=== PATIENT | female | born 1930 | race Caucasian/White ===

== ENCOUNTER 2017-03-20 08:51 | Outpatient (CLI) | payer MEDICARE, OTHER ==
--- NOTE | 2017-03-20 11:04 | Ultrasound Report ---
AORTA SCREEN: 03/20/2017 CLINICAL INDICATION: Screening. TECHNIQUE: Real-time scanning was performed with in home sales representative static images obtained. FINDINGS: The abdominal aorta is normal in caliber, measuring 1.5 cm proximally , 1.7 cm in the mid portion, and 1.2 cm distally. The iliacs are normal in caliber. No free fluid is present. IMPRESSION: NO EVIDENCE OF ABDOMINAL AORTIC ANEURYSM. JOB #: [id number] EXT JOB #: [id number] [facility]
--- NOTE | 2017-03-20 11:42 | XRAY Report ---
THREE-VIEW BILATERAL KNEES: 03/20/2017 CLINICAL INDICATION: Bilateral pain. TECHNIQUE: AP, lateral, sunrise views of the bilateral knees were obtained. COMPARISON: 08/27/2015 FINDINGS: Moderate osteoarthritis is again seen, with chondrocalcinosis. There is no evidence of ac jakob fracture. No effusion is present. IMPRESSION: MODERATE BILATERAL OSTEOARTHRITIS. NO SIGNIFICANT INTERVAL CHANGE. JOB #: [id number] EXT JOB #:[id number]
--- NOTE | 2017-03-20 16:26 | DEXA Report ---
DEXA SCAN: 03/20/2017 CLINICAL INDICATION: Postmenopausal. TECHNIQUE: Dual energy x-ray absorptiometry (DXA) was performed on a [employer] system. Regions measured are the AP spine, femoral neck, and, if needed, forearm. COMPARISON: None. In accordance with the International Society for Clinical Densitometry (ISCD) guidelines, data from previous exams may be reanalyzed using current recommendations and techniques. This is done to allow a more accurate basis for comparison with the current study. FINDINGS The data for the lumbar spine is as follows: REGION BMD (g/cm/cm) T-SCORE Z-SCORE L1 1.494 3.0 5.0 L2 1.433 1.9 4.0 L3 1.437 2.0 4.0 L4 1.387 1.6 3.6 TOTAL 1.435 2.1 4.1 NOTE: All evaluable vertebrae are used for classification. The data for the hip is as follows: REGION BMD (g/cm/cm) T-SCORE Z-SCORE Neck 1.006 -0.2 2.2 TOTAL 1.040 0.3 2.6 NOTE: The femoral neck or total proximal femur, whichever is lowest, is used for classification. IMPRESSION: THE WHO CLASSIFICATION BASED ON THE INTERNATIONAL REFERENCE STANDARD IS NORMAL. THE FRACTURE RISK IS NOT INCREASED. RECOMMENDATION: Patients with diagnosis of osteoporosis or osteopenia should have regular bone mineral density assessment. For those eligible for Medicare, routine testing is allowed once every 2 years. Testing frequency can be increased for patients who have rapidly progressing disease or for those who are receiving medical therapy to restore bone mass. COMMENT: World Health Organization (WHO) definitions for osteoporosis and osteopenia: NORMAL BMD: T-score at -1.0 or higher, fracture risk is low. OSTEOPENIA BMD: T-score between -1.0 and -2.5, fracture risk is increased. OSTEOPOROSIS BMD: T-score at -2.5 or lower, fracture risk high. National Osteoporosis Foundation recommends: 1. Obtain adequate dietary calcium (at least 1200 mg per day) and vitamin D (400 -800 international units per day). 2. Participate, as appropriate, in regular weightbearing and muscle- strengthening exercise. 3. Avoid tobacco use and reduce alcohol and caffeine intake. 4. For more detailed information see the website at www.NOF.org. MTDD
== END 2017-03-20 08:52 | disposition home or self-care (01) ==
LOC: DI 08:51
PROVIDERS: ATTEND Family Medicine
DX: Z13.6 Encounter for screening for cardiovascular disorders (principal); Z13.820 Encounter for screening for osteoporosis; M17.0 Bilateral primary osteoarthritis of knee; Z78.0 Asymptomatic menopausal state
CPT/HCPCS: 76706; 77080

== ENCOUNTER 2017-11-20 16:24 | Outpatient (CLI) | payer MEDICARE, OTHER | END 2017-11-20 16:25 | disposition short-term general hospital (02) | LOC: EMS 16:24 | PROVIDERS: ATTEND Surgery | DX: R00.1 Bradycardia, unspecified (principal) | CPT/HCPCS: A0425; A0433 ==

== ENCOUNTER 2018-03-16 11:45 | Outpatient (CLI) | payer MEDICARE, OTHER ==
--- NOTE | 2018-03-16 14:45 | XRAY Report ---
Reason: R SI PAIN Procedure Date: 03/16/2018 Accession Number: [id number] / [id number] Procedure: XR - SI Joints CPT Code: FULL RESULT: EXAM: SACROILIAC JOINT RADIOGRAPHY EXAM DATE: 03/16/2018 12:14 PM. CLINICAL HISTORY: Right SI pain. COMPARISON: HIP 2 VIEW LT 03/10/2014 9:22 AM. TECHNIQUE: 3 views. FINDINGS: Bones: Normal. No fracture or bone lesion. Joints: The sacroiliac joints are mildly sclerotic which is somewhat greater on the right. Soft Tissues: Normal. IMPRESSION: No fracture or dislocation is identified. Sclerotic changes about the right sacroiliac joint greater than the left joint. RADIA
== END 2018-03-16 11:46 | disposition home or self-care (01) ==
LOC: DI 11:45
PROVIDERS: ATTEND Physician Assistant
DX: M25.80 Other specified joint disorders, unspecified joint (principal); M53.3 Sacrococcygeal disorders, not elsewhere classified
CPT/HCPCS: 72202

== ENCOUNTER 2018-11-05 14:05 | Outpatient (CLI) | payer MEDICARE, OTHER | END 2018-11-05 14:06 | disposition home or self-care (01) | LOC: DI.N 14:05 | PROVIDERS: ATTEND Physician Assistant | DX: Z53.9 Procedure and treatment not carried out, unspecified reason (principal) ==

== ENCOUNTER 2018-12-22 13:48 | Outpatient (CLI) | payer MEDICARE, OTHER ==
--- NOTE | 2018-12-22 14:33 | XRAY Report ---
Reason: L KNEE PAIN Procedure Date: 12/22/2018 Accession Number: [id number] / [id number] Procedure: XRN - Knee 4 View LT CPT Code: FULL RESULT: EXAM: LEFT KNEE RADIOGRAPHY EXAM DATE: 12/22/2018 02:09 PM. CLINICAL HISTORY: L KNEE PAIN. COMPARISON: KNEE 3 VIEW BILAT 03/20/2017 9:59 AM. TECHNIQUE: 4 views. FINDINGS: Bones: Normal. No fractures or bone lesions. Joints: Medial joint space osteophyte, joint space narrowing, subchondral sclerosis. Spurring of the tibial spines. Lateral joint space osteophyte. Chondrocalcinosis. Patellofemoral osteophyte. Trace effusion. Soft Tissues: Normal. No soft tissue swelling. IMPRESSION: Moderate to severe tricompartmental degenerative changes. Chondrocalcinosis RADIA
== END 2018-12-22 13:49 | disposition home or self-care (01) ==
LOC: DI.N 13:48
PROVIDERS: ATTEND Physician Assistant
DX: M17.12 Unilateral primary osteoarthritis, left knee (principal); M11.262 Other chondrocalcinosis, left knee

== ENCOUNTER 2019-09-12 15:13 | Outpatient (CLI) | payer MEDICARE, OTHER ==
--- NOTE | 2019-09-13 04:59 | Ultrasound Report ---
Reason: LEFT LEG PAIN, R/O DVT Procedure Date: 09/12/2019 Accession Number: [id number] / [id number] Procedure: US - Duplex Ext Veins Left CPT Code: Final Report FULL RESULT: EXAM: LEFT LOWER EXTREMITY VENOUS ULTRASOUND EXAM DATE: 09/12/2019 03:50 PM. CLINICAL HISTORY: LEFT LEG PAIN, R/O DVT. COMPARISON: None. TECHNIQUE: Real-time sonographic vascular imaging was performed by the surgical garment fitter through the lower extremity utilizing both color-flow and Doppler spectral analysis. Multiple call center support representative static images were saved for review. FINDINGS: Common Femoral Vein (CFV): Normal. CFV-GSV Junction: Normal. Profunda Femoral Vein (PFV): Normal. Femoral Vein (FV) Prox: Normal. Femoral Vein (FV) Mid: Normal. Femoral Vein (FV) Dist: Normal. Popliteal Vein: Normal. Posterior Tibial Veins: Normal. Peroneal Veins: Normal. Other: None. IMPRESSION: No evidence for deep venous thrombosis. RADIA
== END 2019-09-12 15:14 | disposition home or self-care (01) ==
LOC: DI 15:13
PROVIDERS: ATTEND Internal Medicine Cardiovascular Disease
DX: M79.605 Pain in left leg (principal)

== ENCOUNTER 2020-06-26 13:00 | Outpatient (CLI) | payer MEDICARE, OTHER ==
--- NOTE | 2020-06-26 16:38 | DEXA Report ---
PROCEDURE: Dexa Spine and/or Hip INDICATIONS: POSTMENOPAUSAL, SCREENING FOR OSTEOPOROSIS TECHNIQUE: Dual energy x-ray absorptiometry (DXA) was performed on a [employer] System. Regions measur ed are the AP Spine, femoral neck, and if needed forearm. COMPARISON: None. FINDINGS: Lumbar Spine: Bone Mineral Density 1.484 g/cm/cm,T score 2.5, normal Left total Hip: Bone Mineral Density 1.005 g/cm/cm,T score 0.0, normal Left Femoral Neck: Bone Mineral Density 0.979 g/cm/cm, T score -0.4, normal (T score greater or equal to -1.0: NORMAL) (T score from -1.1 to -2.4: OSTEOPENIA) (T score less than or equal to -2.5 to: OSTEOPOROSIS) Impression: Normal bone mineral density. Patients with diagnosis of osteoporosis or osteopenia should have regular bone mineral density assess ment. For those eligible for Medicare, routine testing is allowed once every 2 years. Testing frequ ency can be increased for patients who have rapidly progressing disease or for those who are receivin g medical therapy to restore bone mass. Reviewed by: Jayden Potts on 06/26/2020 4:36 PM PST Approved by: Jayden Potts on 06/26/2020 4:36 PM PST Station ID: [id number]
== END 2020-06-26 13:01 | disposition home or self-care (01) ==
LOC: DI 13:00
PROVIDERS: ATTEND Family Medicine
DX: Z13.820 Encounter for screening for osteoporosis (principal); Z78.0 Asymptomatic menopausal state

== ENCOUNTER 2022-01-07 10:33 | Outpatient (CLI) | payer MEDICARE, OTHER ==
[2022-01-07 13:10] LABS: BASOPHILS % (AUTO) 0.4 %; EOSINOPHILS # (AUTO) 0.2 10^3/uL (0.0-0.7); EOSINOPHILS % (AUTO) 2.9 %; HCT - HEMATOCRIT 43.5 % (37.0-47.0); HGB - HEMOGLOBIN 14.3 g/dL (12.0-16.0); LYMPHOCYTES # (AUTO) 1.9 10^3/uL (1.5-3.5); LYMPHOCYTES % (AUTO) 36.5 %; MEAN CORPUSCULAR HEMOGLOBIN 28.4 pg (27.0-31.0); MEAN CORPUSCULAR HGB CONC 32.9 g/dL (32.0-36.0); MEAN CORPUSCULAR VOLUME 86.5 fL (81.0-99.0); MEAN PLATELET VOLUME 10.4 fL (7.9-10.8); MONOCYTES # (AUTO) 0.4 10^3/uL (0.0-1.0); MONOCYTES % (AUTO) 7.8 %; NEUTROPHILS # (AUTO) 2.8 10^3/uL (1.5-6.6); NEUTROPHILS % (AUTO) 52.2 %; PLT - PLATELET COUNT 195 10^3/uL (130-450); RED BLOOD COUNT 5.03 10^6/uL (4.20-5.40); RED CELL DISTRIBUTION WIDTH 14.3 % (12.0-15.0); WHITE BLOOD COUNT 5.3 x10^3/uL (4.8-10.8)
[2022-01-07 13:44] LABS: ALBUMIN 3.8 g/dL (3.2-5.5); ALBUMIN/GLOBULIN RATIO 1.2 (1.0-2.2); ALKALINE PHOSPHATASE 61 IU/L (42-121); ALT ALANINE AMINOTRANSFERASE 17 IU/L (10-60); AST ASPARTATE AMINOTRANSFERASE 16 IU/L (10-42); BILIRUBIN,TOTAL 0.7 mg/dL (0.2-1.0); BUN - BLOOD UREA NITROGEN 11 mg/dL (6-20); CALCIUM 9.8 mg/dL (8.5-10.3); CARBON DIOXIDE - CO2 32 mmol/L (21-32); CHLORIDE 104 mmol/L (101-111); CHOL/HDL RATIO 2.4 (<4.4); CHOLESTEROL 217 mg/dL; CREATININE 0.8 mg/dL (0.4-1.0); GFR - MDRD 68 (>89); GLUCOSE 99 mg/dL (70-100); HDL CHOLESTEROL 92 mg/dL; POTASSIUM 4.2 mmol/L (3.5-5.0); SODIUM 142 mmol/L (135-145); TOTAL PROTEIN 6.9 g/dL (6.7-8.2); TRIGLYCERIDES 38 mg/dL
== END 2022-01-07 10:34 | disposition home or self-care (01) ==
LOC: LAB.N 10:33
PROVIDERS: ATTEND Internal Medicine
DX: I10 Essential (primary) hypertension (principal)
CPT/HCPCS: 36415; 80053; 80061; 83721; 85025